=== PATIENT | female | born 1960 | race Asian ===

== ENCOUNTER 2020-12-28 09:38 | Emergency (ER) | payer MEDICAID ==
[~2020-12-28] VITALS: Ht 160 cm; Wt 68.2 kg
[2020-12-28] MEDS ORDERED: HYDR25TA2 PO (09:43)
[2020-12-28] MEDS ORDERED: LOSA25TA21 PO (09:43)
[2020-12-28] MEDS ORDERED: AMLO2.5T96 PO (09:43)
[2020-12-28 11:31] VITALS: BP 155/88
== END 2020-12-28 11:49 | disposition home or self-care (01) ==
LOC: EMS 09:47
DX: I10 Essential (primary) hypertension (principal); E11.9 Type 2 diabetes mellitus without complications
CPT/HCPCS: 99281; Z7502